=== PATIENT | male | born 1990 | race Caucasian/White ===

== ENCOUNTER 2025-01-10 19:42 | Emergency (ER) | payer BC, MEDICAID ==
[2025-01-10] MEDS ORDERED: Sodium Chloride 0.9% 10 ML Syringe FLUSH PRN (20:08)
[2025-01-10 20:16] LABS: BASOPHILS ABSOLUTE AUTO 0.0 K/mm3 (0.0-0.2); BASOPHILS PERCENT AUTO 0.5 % (0.0-1.0); EOSINOPHILS ABSOLUTE AUTO 0.2 K/mm3 (0.0-0.4); EOSINOPHILS PERCENT AUTO 3.4 % (0.0-6.0); IMMATURE GRAN ABSOLUTE AUTO 0.01 K/mm3 (0.00-0.05); IMMATURE GRAN PERCENT AUTO 0.2 % (0.0-0.4); LYMPHOCYTES ABSOLUTE AUTO 1.2 K/mm3 (1.0-4.8); LYMPHOCYTES PERCENT AUTO 21.2 % (24.0-44.0); MEAN PLATELET VOLUME 9.5 fl (9.4-12.4); MONOCYTES ABSOLUTE AUTO 0.4 K/mm3 (0.0-0.8); MONOCYTES PERCENT AUTO 7.8 % (0.0-8.0); NEUTROPHILS ABSOLUTE AUTO 3.7 K/mm3 (1.8-7.7); NEUTROPHILS PERCENT AUTO 66.9 % (41.0-71.0); NRBC ABSOLUTE 0.00 (0.00-0.02); NRBC PERCENT 0.0 % (0.0-0.2); PLATELET COUNT,PLT 247 K/mm3 (150-400); RED BLOOD CELL COUNT 4.65 M/mm3 (4.52-5.90); WHITE BLOOD CELL COUNT,WBC 5.51 K/mm3 (3.9-11.3)
[2025-01-10 20:43] LABS: A/G RATIO 1.2 (1-2); ALANINE AMINOTRANSFERASE,ALT 22.0 U/L (16-63); ASPARTATE AMNIOTRANSFERASE,AST 15.0 U/L (15-37); BILIRUBIN TOTAL 0.9 mg/dL (0.2-1.0); BLOOD UREA NITROGEN,BUN 18.0 mg/dL (7-18); CARBON DIOXIDE,CO2 26.0 mEq/L (21-32); CHLORIDE,CL 100.0 mEq/L (98-107); CREATININE 1.2 mg/dL (0.7-1.3); EST CRCL DRUG DOSING (CG) 94.13 mL/min; ESTIMATED GFR 82.0 mL/min (>60); PHOSPHORUS 3.4 mg/dL (2.6-4.7); POTASSIUM,K 4.7 mEq/L (3.5-5.1); PROTEIN TOTAL,TP 7.0 g/dl (6.4-8.2); SODIUM,NA 137.0 mEq/L (136-145)
[2025-01-10 20:47] LABS: GLUCOSE RANDOM 418.0 mg/dL (70-99)
[2025-01-10 20:50] LABS: APPEARANCE,URINE CLEAR (Clear); GLUCOSE,URINE 2+ (Negative); OCCULT BLOOD,URINE NEGATIVE (Negative)
[2025-01-10 21:11] LABS: EPITHELIAL CELLS,URINE 0-5 /hpf (0-5)
[2025-01-10 21:13] LABS: BASE EXCESS VENOUS 0.5 (-4.0-2.0); BICARBONATE,VENOUS 24.6 meq/L (22-26); O2 SATURATION VENOUS 83.4; PCO2 VENOUS 37.0 mmHg (41-51); PH,VENOUS 7.43 (7.30-7.40); PO2 VENOUS 54.0 mmHG (40-80)
== END 2025-01-10 21:55 | disposition home or self-care (01) ==
LOC: JD.ED 19:42
DX: E10.65 Type 1 diabetes mellitus with hyperglycemia (principal); F17.200 Nicotine dependence, unspecified, uncomplicated; Z88.2 Allergy status to sulfonamides
CPT/HCPCS: 36415; 80053; 81001; 82803; 82947; 83735; 84100; 85025; 87040; 99284; J7030; 99283